=== PATIENT | female | born 1930 | race Caucasian/White ===

== ENCOUNTER 2017-08-21 06:04 | Inpatient (IN) ==
[2017-08-21] MEDS ORDERED: ONDANSETRON 4 MG/2 ML VIAL IV STA (07:05)
[2017-08-21] MEDS ORDERED: NITROGLYCERIN 2% OINT 1 INCH/GM PACK TOP STA (07:05)
[2017-08-21] MEDS ORDERED: ASPIRIN 325 MG TABLET PO STA (07:05)
[2017-08-21] MEDS ORDERED: FUROSEMIDE 100 MG/10 ML VIAL IV STA (07:05)
[2017-08-21] MEDS ORDERED: methylPREDNISolone SOD SUC 125 MG/2 ML VIAL IV STA (07:05)
--- NOTE | 2017-08-21 07:05 | Emergency Department Note ---
IAdi Emily, am scribing for, and in the presence of, Js Verde MD 07: 01. Ammon Ivory Charles R, MD, personally performed the services described in this documentation, ascribed by Juhi Joshi in my presence, and it is both accurate and complete . Arrival - Arrival Chief Complaint: Shortness of Breath Stated Complaint: trouble breathing ED Nursing Triage Note: TO ER PER WHEELCHAIR WITH COMPLAINT OF SHORTNESS OF BREATH THAT BEGAN LAST PM A SUDDEN ONSET. DENIES ANY CHEST PAIN AT THIS TIME. REPORTS WAITED THIS AM TO CALL HER DAUGHTER TO COME TO ED BECAUSE SHE DIDNT WANT TO BOTHER ANYONE. Mode of Arrival: Wheelchair Limitations: No Limitations Source: Patient - History of Present Illness HPI Narrative: Pt is a 86 y/o female who came to ED with c/o SOB that started last night after going to bed. Pt reports having dyspnea when laying flat to go to sleep. Pt denies chest pain, blood thinners, hx of smoking, or any other pains. Pt sees [facility] for heart, PCP is Dr. Madsen. PMHx of IDDM. Onset (ago): hour(s) Consistency: constant Severity: mild Severity scale (1-10): 3 Allergies/Adverse Reactions: Allergies Allergy/AdvReac Type Severity Reaction Status Date / Time LIBORIO Inhibitors Allergy HIVES Verified 08/21/17 06:35 amlodipine [From Norvasc] Allergy HIVES Verified 08/21/17 06:35 carvedilol [From Coreg] Allergy HIVES Verified 08/21/17 06:35 diltiazem [From Cardizem] Allergy HIVES Verified 08/21/17 06:35 Hydralazine Allergy HIVES Verified 08/21/17 06:35 metoclopramide Allergy HIVES Verified 08/21/17 06:35 minoxidil Allergy HIVES Verified 08/21/17 06:35 nitrofurantoin Allergy HIVES Verified 08/21/17 06:35 Penicillins Allergy HIVES Verified 08/21/17 06:35 Sulfa (Sulfonamide Allergy HIVES Verified 08/21/17 06:35 Antibiotics) ciprofloxacin AdvReac Blurry Verified 08/21/17 06:35 Vision Home Medications: Home Medications Medication Instructions Recorded Confirmed Type glipiZIDE [Glipizide] 5 mg PO DAILY 02/15/16 01/23/17 History Cetirizine Tab [ZyrTEC Tab] 10 mg PO DAILY 01/15/17 01/23/17 History Domperidone (Motilium) 10 mg PO TIDPC 01/15/17 01/23/17 History Meclizine [Antivert] 25 mg PO QID PRN 01/16/17 01/23/17 History Docusate Sodium 100 mg PO QOTHER DAY PRN 01/23/17 01/23/17 History Furosemide Tab [Lasix Tab] 40 mg PO DAILY #30 tablet 01/26/17 Rx Nebivolol HCl [Bystolic] 5 mg PO DAILY #60 tablet 01/26/17 Rx Pantoprazole Tab [Protonix Tab] 40 mg PO DAILY tablet 01/26/17 Rx Review of System - Review of System 12 point system: reviewed and no additional remarkable complaints except as stated - Review of System Constitutional: Absent: chills, fever, weakness Respiratory: Present: respiratory distress Cardiovascular: Present: orthopnea. Absent: chest pain, syncope Gastrointestinal: Absent: abdominal pain, nausea, vomiting Musculoskeletal: Absent: arm pain, neck pain Skin: Absent: rash Neurological: Absent: headache Psychiatric: Absent: anxiety Medical,Surgical,& Family Hx - Medical History Cardio: History of: CAD, Hypertension, [place], Cardiovascular Problems (cabg) HEENT: History of: Eye Problem (cataract) Endocrine: History of: Diabetes Mellitus (IDDM) Respiratory: History of: Bronchitis Gastrointestinal: History of: GERD, GI Problems (gastroparesis) - Surgical History Abdominal Surgeries: Surgical HX of: Appendectomy, Cholecystectomy - Family History Family History: Reports;: Family Diabetes (mother), Family Heart Disease, Family Hypertension (mother), Family Stroke (mother) Denies;: Family Anesthesia Reaction, Family Cancer, Family Psychiatric Problems - Social History Smoking Status: Never smoker Frequency of Alcohol Use: None Type of Drug Use: None Marital Status: Single Lives With:: Alone Functional capacity: independent ambulation Exam Vital Signs: Vital Signs Temperature 97.9 F 08/21/17 06:18 Pulse Rate 63 08/21/17 09:36 Respiratory Rate 20 08/21/17 09:36 Blood Pressure 199/76 08/21/17 06:18 O2 Sat by Pulse Oximetry 100 08/21/17 09:36 - General General appearance: alert, in no apparent distress, other (strainy voice - baseline nml) - Head Head exam: Present: atraumatic, normocephalic - Eye Eye exam: Present: PERRL, EOMI - ENT ENT exam: Present: mucous membranes moist. Absent: mucous membranes dry - Neck Neck exam: Present: full ROM - Chest Chest inspection: Present: symmetric chest wall rise (barreled chest) - Respiratory Respiratory exam: Present: rales, rhonchi. Absent: accessory muscle use, respiratory distress (no acute distress) - Cardiovascular Cardiovascular exam: Present: murmur (3 out 6 systolic ejection murmur) - Extremities Exam Extremities exam: Present: full ROM, other (vericose veins BLE). Absent: pedal edema - Neurological Exam Neurological exam: Present: alert, oriented X3, CN II-XII intact. Absent: motor sensory deficit - Psychiatric Psychiatric exam: Present: normal affect, normal mood - Skin Skin exam: Present: warm, dry Course - Consultations Consultation #1: Hospitalist will admit patient Time: 10:37 Results - Labs CBC & BMP: 08/21/17 07:28 08/21/17 07:28 Lab Results: I have reviewed the patients labs Labs: Laboratory Tests 08/21/17 08/21/17 07:28 07:28 Lymph % (Auto) 18.7 L BUN 27 H Creatinine 1.30 H Glucose 124 H AST 40 H ALT 26 Troponin I 0.016 Globulin 4.2 H Albumin/Globulin Ratio 0.8 L Laboratory Tests 08/21/17 07:28 B-Natriuretic Peptide 1617 H Laboratory Tests 08/21/17 07:28 Urine Color Yellow Urine Appearance Clear Urine pH 6.0 Ur Specific [employer] 1.008 Urine Protein 100 Urine Blood Negative Urine Nitrate Negative Urine Bilirubin Negative Urine Urobilinogen < 2.0 H Urine Leukocytes Trace Urine RBC 1 Urine WBC 2 Ur Squamous Epith Cells Occasional - Diagnostic Findings Procedure: Chest x-ray: report reviewed by me (COPD with chronic scarring in patient with prior median sternotomy. Progressive edema/infiltration/ atelectasis at the lung bases with small pleural effusions. Osteopenia with prior cholecystectomy.) Disposition Clinical Impression: CAD (coronary artery disease), Congestive heart failure, Acute exacerbation of chronic obstructive airways disease, Pleural effusion, Dyspnea Case discussed with: patient, patient's family Disposition: Still a Patient Condition: Stable Time of Disposition: 10:37
[2017-08-21] MEDS ORDERED: ALBUTEROL 2.5 MG/3 ML NEB RESP TX SCH (07:30)
[2017-08-21 07:39] LABS: Basophils # 0.1 10*3/uL (0.0-0.2); Basophils % 0.6 % (0.0-0.8); Eosinophils % 0.5 % (0.00-10.9); Hematocrit 36.4 VOL% (35.7-47.0); Hemoglobin 12.6 GM/DL (12.0-16.0); Immature Granulocytes % 0.4 %; Immature Granulocytes Absolute 0.03 #; Lymphocytes # 1.6 10*3/uL (1.4-4.0); Lymphocytes % 18.7 % (21.3-54.2); Mean Corpuscular HGB Conc 34.6 GM/DL (32-36); Mean Corpuscular Hemoglobin 31 PG (27-34); Mean Corpuscular Volume 90.3 FL (87-102); Mean Platelet Volume 10.5 FL (9.6-12.0); Monocytes # 0.7 10*3/uL (0.11-0.8); Monocytes % 8.3 % (1.7-12.7); Neutrophils % 71.5 % (38.7-73.9); Platelet Count 176 T/CUMM (130-400); Red Blood Count 4.03 MC/CUMM (3.8-5.5); Red Cell Distribution Width 12.8 % (9.3-17.3); White Blood Count 8.4 T/CUMM (4-12)
[2017-08-21] MEDS ORDERED: ONDANSETRON 4 MG/2 ML VIAL ONE (07:42)
[2017-08-21] MEDS ORDERED: NITROGLYCERIN 2% OINT 1 INCH/GM PACK TOP ONE (07:42)
[2017-08-21] MEDS ORDERED: FUROSEMIDE 100 MG/10 ML VIAL ONE (07:43)
[2017-08-21] MEDS ORDERED: methylPREDNISolone SOD SUC 125 MG/2 ML VIAL ONE (07:43)
[2017-08-21] MEDS ORDERED: ASPIRIN 325 MG TABLET ONE (07:43)
[2017-08-21 07:46] LABS: INR 1.1; PT Patient Result 11.5 SECS
[2017-08-21 08:12] LABS: Albumin 3.5 G/DL (3.4-5.0); Bilirubin,Total 0.7 MG/DL (0.2-1.0); Calcium 8.8 MG/DL (8.5-10.1); Magnesium 2.3 MG/DL (1.8-2.4); Osmolality,Calculated 280.7 MOS/KG (273-304); Potassium 4.7 MMOL/L (3.5-5.1); Total Protein 7.7 G/DL (6.4-8.3); Troponin I Only 0.016 NG/ML (0.00-0.045)
--- NOTE | 2017-08-21 09:03 | XRay Report ---
XR chest 2V Date: 08/21/2017 7:06 AM History: Shortness of breath Comparison: 01/25/2017 Technique: PA and lateral chest Findings: The heart is minimally enlarged with prior median sternotomy. The lungs remain overexpanded with progressive diffuse parenchymal findings at the lung bases with small bilateral pleural effusions. Diffuse arterial calcifications are noted. Osteopenia with degenerative changes. Prior cholecystectomy. Impression: COPD with chronic scarring in patient with prior median sternotomy. Progressive edema/infiltration/atelectasis at the lung bases with small pleural effusions. Osteopenia with prior cholecystectomy. PROCEDURE INTERPRETED AT [facility] DEPARTMENT OF RADIOLOGY Final Report Signed by: Dr. Sapna Gillette
[2017-08-21 09:35] LABS: Apearance,Urine CLEAR (Clear); Bilirubin,Urine Negative (Negative); Blood, Urine Negative (Negative); Glucose,Urine (UA) Negative (Negative); Ketones,Urine Negative (Negative); Nitrite,Urine Negative (Negative); Protein,Urine 100 MG/DL; RBC,Urine 1 /HPF (0-4); Squamous Epithelial Cell,Urine Occasional /HPF (0-10); Urine Color Yellow (Yellow); Urine Specific Gravity 1.008 (1.001-1.035); Urine Urobilinogen < 2.0 EU/DL (0.2-1.0); WBC,Urine 2 /HPF (0-6)
[2017-08-21] MEDS ORDERED: DEXTROSE 50% 25 GM/50 ML VIAL IV PRN (12:02)
[2017-08-21] MEDS ORDERED: GLUCAGON 1 MG VIAL IM PRN (12:02)
[2017-08-21] MEDS ORDERED: ACETAMINOPHEN 325 MG TABLET PO PRN (12:02)
[2017-08-21] MEDS ORDERED: ALBUTEROL/IPRATROPIUM 3 ML NEB RESP TX PRN (12:02)
--- NOTE | 2017-08-21 12:06 | Hospitalist History & Physical ---
<Hedy Foy - Last Filed: 08/21/17 13:04> Assessment and Plan (1) Congestive heart failure Status: Acute Assessment and plan: Admit to monitored bed. BNP 1617. IV lasix ordered BID. Repeat bnp in am. Current Visit: Yes (2) Dyspnea Status: Acute Assessment and plan: prn breathing treatments. Supplemental O2. Current Visit: Yes (3) Diabetes mellitus Status: Chronic Assessment and plan: accuchecks achs. SSI. Current Visit: No Qualifiers: Diabetes mellitus type: type 2 (4) Gastroparesis Status: Chronic Current Visit: No (5) Hyperlipidemia Status: Chronic Assessment and plan: Lipid panel in am. Restart home meds once they have been reconciled. Current Visit: No History of Present Illness Chief complaint: shortness of breath History of present illness: Ms. Chávez is a 86 year old white female with a history of hypertension, CAD with CABG, diabetes, cataract surgery, macular degeneration, valve issues, pneumonia, hiatal hernia, and gastroparesis that presents to the ED today for further evaluation of shortness of breath. Pt. is accompanied by her daughter. Pt. states that last night around 10 pm she became short of breath. Pt. states she was at rest when symptoms began. Pt. states she got in bed and attempted to sleep but that the symptoms continued. She says she was unable to sleep and ended up sitting in the chair all night. This morning she called her daughter and requested she be brought in to the ED for evaluation. Pt. denies any other symptoms such as chest pain, nausea, vomiting, or edema. Pt's PCP is Dr. Manuel and her cocoa mill operator is Dr. Bah. In ED, pt was noted to have a BNP of 1617 as well as a bun/creatinine of 27/1.30. CXR shows COPD with chronic scarring, progressive edema/infiltration/atelectasis at lung bases with small pleural effusion. Pt's case was discussed with the ER physician and hospitalist Dr. Lovett. Pt will be admitted to the hospitalist program for further evaluation and treatment. Home meds have been reviewed and reconciled. Pt's CODE STATUS has been discussed and she would like to be a DO NOT INTUBATE. Home Medications Medication Instructions Recorded Confirmed Type glipiZIDE [Glipizide] 5 mg PO DAILY 02/15/16 08/21/17 History Domperidone (Motilium) 10 mg PO TIDPC 01/15/17 08/21/17 History Meclizine [Antivert] 25 mg PO QID PRN 01/16/17 08/21/17 History Docusate Sodium 100 mg PO QOTHER DAY PRN 01/23/17 08/21/17 History Nebivolol HCl [Bystolic] 5 mg PO DAILY #60 tablet 01/26/17 08/21/17 Rx Insulin NPH [HumuLIN N] 12 unit SUBCUT QPM 08/21/17 08/21/17 History Pantoprazole Tab [Protonix Tab] 40 mg PO BID 08/21/17 08/21/17 History Allergies Allergy/AdvReac Type Severity Reaction Status Date / Time LIBORIO Inhibitors Allergy HIVES Verified 08/21/17 06:35 amlodipine [From Norvasc] Allergy HIVES Verified 08/21/17 06:35 carvedilol [From Coreg] Allergy HIVES Verified 08/21/17 06:35 diltiazem [From Cardizem] Allergy HIVES Verified 08/21/17 06:35 Hydralazine Allergy HIVES Verified 08/21/17 06:35 metoclopramide Allergy HIVES Verified 08/21/17 06:35 minoxidil Allergy HIVES Verified 08/21/17 06:35 nitrofurantoin Allergy HIVES Verified 08/21/17 06:35 Penicillins Allergy HIVES Verified 08/21/17 06:35 Sulfa (Sulfonamide Allergy HIVES Verified 08/21/17 06:35 Antibiotics) ciprofloxacin AdvReac Blurry Verified 08/21/17 06:35 Vision Medical,Surgical,& Family Hx - Medical History Cardio: History of: CAD, Hypertension, [place], Cardiovascular Problems (cabg) HEENT: History of: Eye Problem (cataract) Endocrine: History of: Diabetes Mellitus (IDDM) Respiratory: History of: Bronchitis Gastrointestinal: History of: GERD, GI Problems (gastroparesis) - Surgical History Abdominal Surgeries: Surgical HX of: Appendectomy, Cholecystectomy - Family History Family History: Reports;: Family Diabetes (mother), Family Heart Disease, Family Hypertension (mother), Family Stroke (mother) Denies;: Family Anesthesia Reaction, Family Cancer, Family Psychiatric Problems - Social History Smoking Status: Never smoker Frequency of Alcohol Use: None Type of Drug Use: None Lives With:: Alone Functional capacity: independent ambulation 12 point system: reviewed and no additional remarkable complaints except as stated - Cardiovascular Cardiovascular: Absent: chest pain at rest, diaphoresis, edema - Respiratory Respiratory: Present: dyspnea. Absent: cough, wheezing Exam - Constitutional Vitals: Period Temp Pulse Resp BP Sys/Ford Pulse Ox Last 24 Hr 97.9 F-98.4 F 63-79 15-23 173-199/71-76 98-100 General appearance: normal weight, no acute distress - Head Head exam: Present: normal inspection, normocephalic - Eye Eye exam: Present: EOMI. Absent: scleral icterus Pupils: Present: MARGOT. Absent: fixed - Respiratory Respiratory exam: Present: clear to auscultation bilaterally. Absent: wheezes - Cardiovascular Cardiovascular exam: Present: regular rate and rhythm - GI/Abdominal GI/Abdominal exam: Present: normal bowel sounds, soft. Absent: tenderness - Extremities Exam Extremities exam: Present: normal capillary refill, full ROM. Absent: edema - Neurological Exam Neurological exam: Present: alert, oriented X3 - Psychiatric Psychiatric exam: Present: normal affect, normal mood - Skin Skin exam: Present: normal color, warm, dry Results - Labs CBC & BMP: 08/21/17 07:28 08/21/17 07:28 Lab Results: I have reviewed the past 24 hour labs <Oscar Lovett - Last Filed: 08/21/17 15:05> History of Present Illness History of present illness: Ms. Chávez is a 86 year old female who is being admitted to the hospital with acute on chronic congestive heart failure. I have interviewed and examined the patient and reviewed all available laboratory and radiographic test results. I agree with the assessment and plans of the nurse practitioner. Ms. Chávez is being admitted to the hospital. She will be administered intravenous furosemide. Cardiology has been consulted. Exam - Constitutional Vitals: Period Temp Pulse Resp BP Sys/Ford Pulse Ox Last 24 Hr 97.9 F-98.4 F 63-85 15-23 173-199/71-86 91-100 Results - Labs CBC & BMP: 08/21/17 07:28 08/21/17 07:28
[2017-08-21] MEDS ORDERED: INFLUENZA VIRUS VACCINE 0.5 ML SYRINGE IM ONE (12:49)
[2017-08-21] MEDS ORDERED: DOCUSATE SODIUM 100 MG CAPSULE PO PRN (13:23)
--- NOTE | 2017-08-21 14:01 | Order Completion Report ---
See report scanned to EMR
[2017-08-21] MEDS: INSULIN LISPRO 100 UNIT/ML SUBCUT SCH ×2 (18:00→20:49)
[2017-08-21] MEDS: FUROSEMIDE 40 MG/4 ML VIAL IV SCH (18:00)
[2017-08-22 06:27] LABS: Basophils % 0.1 % (0.0-0.8); Hematocrit 32.8 VOL% (35.7-47.0); Hemoglobin 11.3 GM/DL (12.0-16.0); Immature Granulocytes % 0.5 %; Immature Granulocytes Absolute 0.06 #; Lymphocytes # 1.3 10*3/uL (1.4-4.0); Lymphocytes % 10.6 % (21.3-54.2); Mean Corpuscular HGB Conc 34.5 GM/DL (32-36); Mean Corpuscular Hemoglobin 31 PG (27-34); Mean Corpuscular Volume 89.9 FL (87-102); Mean Platelet Volume 11.2 FL (9.6-12.0); Neutrophils # 9.7 10*3/uL (1.4-7.4); Neutrophils % 80.8 % (38.7-73.9); Platelet Count 177 T/CUMM (130-400); Red Blood Count 3.65 MC/CUMM (3.8-5.5); Red Cell Distribution Width 12.9 % (9.3-17.3)
[2017-08-22 07:04] LABS: Calcium 9.2 MG/DL (8.5-10.1); Magnesium 2.2 MG/DL (1.8-2.4); Osmolality,Calculated 287.7 MOS/KG (273-304); Potassium 4.7 MMOL/L (3.5-5.1); Thyroid Stimulating Hormone 1.39 uIU/ml (0.358-3.74)
--- NOTE | 2017-08-22 07:52 | Hospitalist Progress Note ---
Assessment and Plan (1) Chronic kidney disease, stage 4 (severe) Status: Acute Assessment and plan: Laboratory testing demonstrates BUN 39, creatinine 1.8, and calculated GFR 21. Yesterday they were 27, 1.3, and 32, respectively. Worsening renal function is presumably secondary to volume depletion secondary to diuresis. Current Visit: Yes (2) Anemia Status: Acute Assessment and plan: Admission hematocrit and hemoglobin were 36.4 and 12.6 respectively. They are today 32.8 and 11.3 respectively. Current Visit: Yes Qualifiers: Anemia type: unspecified type Qualified Code(s): D64.9 - Anemia, unspecified (3) CAD (coronary artery disease) Status: Chronic Assessment and plan: Patient is a previous history of coronary artery disease status post remote coronary artery bypass graft surgery. She is stable at the present time with no chest pain. Troponin performed on admission was normal at 0.016. Current Visit: Yes (4) Diabetes mellitus Status: Acute Assessment and plan: Blood glucose today is 201. She is being treated with continuation of her glipizide and sliding scale regular insulin coverage. Current Visit: No Qualifiers: Diabetes mellitus type: type 2 Diabetes mellitus complication status: without complication Diabetes mellitus jail insulin use: without jail use Qualified Code(s): E11.9 - Type 2 diabetes mellitus without complications (5) Congestive heart failure Status: Acute Assessment and plan: She has a previous Nathaniel known history of congestive heart failure, unspecified type. She has been treated with intravenous furosemide since her hospitalization and has undergone diuresis. She is significantly better today. She will undergo an echocardiogram today. Cardiology has been consulted. Current Visit: Yes Qualifiers: Congestive heart failure type: unspecified congestive heart failure type Hospitalist: Subjective Interval history: Patient feels much better this morning she is undergone significant diuresis with a negative balance of 500 mL recorded since admission. She continues to receive furosemide 40 mg IV twice daily. Cardiology has been consulted. Exam - Constitutional Vitals: Period Temp Pulse Resp BP Sys/Ford Pulse Ox Last 24 Hr 97.2 F-98.4 F 60-85 15-20 137-197/64-86 91-100 General appearance: no acute distress - Head Head exam: Present: normal inspection - Neck Neck exam: Present: normal inspection - Respiratory Respiratory exam: Present: clear to auscultation bilaterally - Cardiovascular Cardiovascular exam: Present: regular rate and rhythm - GI/Abdominal GI/Abdominal exam: Present: normal bowel sounds, soft, other (Nontender with no palpable masses or hepatosplenomegaly.) - Extremities Exam Extremities exam: Present: normal inspection - Neurological Exam Neurological exam: Present: alert, oriented X3 - Skin Skin exam: Present: normal color, warm, intact Results - Labs CBC & BMP: 08/22/17 05:18 08/22/17 05:18
[2017-08-22] MEDS: FUROSEMIDE 40 MG/4 ML VIAL IV SCH (08:36)
[2017-08-22] MEDS: INSULIN LISPRO 100 UNIT/ML SUBCUT SCH ×4 (08:36→20:09)
[2017-08-22] MEDS: glipiZIDE 5 MG TABLET PO SCH (08:37)
[2017-08-22] MEDS: NEBIVOLOL 5 MG TABLET PO SCH (08:37)
[2017-08-22] MEDS: PANTOPRAZOLE 40 MG TABLET PO SCH (08:37)
[2017-08-22] MEDS ORDERED: diphenhydrAMINE CAP 25 MG CAPSULE PO PRN (10:26)
--- NOTE | 2017-08-22 11:18 | Physician Query Form ---
CLICK EDIT DOCUMENT TO SELECT QUERY ANSWER --> OK --> SIGN Prachi Shah RN Clinical Clinical Engineering Director W) [phone] (f) [phone] [email or web address] PROVIDERS: Make your selection(s) from the choices in EACH section by typing an "x" and enter comments in the comment section. Please use your independent medical judgment in providing your response. This request does not imply that any particular answer is desired or expected. CLINICAL INDICATORS: (Providers should not edit this section) Pt. admitted with CHF and diuresed with IV Lasix. Creatinine on admission was 1.30 and increased to 1.80 with a GFR of 21. Clarify which of the following most accurately represents the patient's renal status: ( ) Acute kidney injury (non-traumatic) ( ) Acute renal failure (x ) Acute renal failure with underlying Chronic Kidney Disease (CKD) - please provide stage below ( ) CKD - please provide stage below ( ) Other, please specify: ( ) Clinically unable to determine Chronic Kidney Disease Stages Source: National Kidney Disease Foundation ( ) Stage I (eGFR > or = 90) ( ) Stage II (eGFR 60 - 89) ( x) Stage III (eGFR 30 - 59) ( ) Stage IV (eGFR 15 - 29) ( ) Stage V (eGFR < 15 or dialysis) COMMENTS: PLEASE ALSO DOCUMENT RESPONSE IN PROGRESS NOTES AND/OR DISCHARGE SUMMARY Use of terms such as suspected, likely, or probable (associated with a specific diagnosis that is being evaluated, monitored, or treated as if it exists) are acceptable and can be restated in the discharge summary if not ruled out. MTDD
--- NOTE | 2017-08-22 17:53 | Order Completion Report ---
See report scanned to EMR
--- NOTE | 2017-08-22 21:31 | Cardiology Consult Note ---
I, Blaire Gonzales RN, am scribing for, and in the presence of, Frederick Hernandez MD 21:23. Assessment and Plan - Time spent with patient Time spent with patient: Greater than 30 minutes (Due to assessment, planning, documentation, medication review) (1) Congestive heart failure Status: Acute Assessment and plan: And probably is multifactorial, related to renal insufficiency, diastolic dysfunction, her age, and inactivity Likely will need some diuretic Echo/Doppler on 09/2016-35%, 3+ MR In the course of the evaluation, is seeing the patient did an echo/Doppler. He was ordered. I will review it. Follow-up with Dr. Bah as is scheduled or sooner if needed 2/6 holosystolic murmur at the apex We'll try to get her to be more active, also He likely will need some regular Lasix Current Visit: Yes Qualifiers: Congestive heart failure type: unspecified congestive heart failure type (2) Acute exacerbation of chronic obstructive airways disease Status: Acute Current Visit: Yes (3) Anemia Status: Acute Current Visit: Yes Qualifiers: Anemia type: unspecified type Qualified Code(s): D64.9 - Anemia, unspecified (4) Chronic kidney disease, stage 4 (severe) Status: Acute Current Visit: Yes (5) Pleural effusion Status: Acute Current Visit: Yes (6) CAD (coronary artery disease) Status: Chronic Current Visit: Yes (7) Acute blood loss anemia Status: Acute Current Visit: No (8) Coronary artery disease Status: Chronic Current Visit: No (9) Diabetes mellitus Status: Chronic Current Visit: No Qualifiers: Diabetes mellitus type: type 2 (10) Gastroparesis Status: Chronic Current Visit: No (11) Chest pain Status: Resolved Current Visit: No History of Present Illness - Data of Consult Patient: known to practice within the last 3 years Consult date: 08/22/17 Requesting Physician: Oscar Lovett Primary care physician: Nancy Madsen - Consult Narrative Reason for consult: CHF History of present illness: Manager Cardiac: Dr. Bah PCP: Dr. Barbour Ms. Chávez is a 86 year old female who is routinely followed by Dr. Bah with history of CAD, CHF, diabetes, dyslipidemia, hypertension, and mitral regurgitation. She underwent coronary bypass grafting the measures ago. Her last heart catheterization in 2010 demonstrated occluded LAD, right coronary artery, severe disease of intermediate ramus branch, patent saphenous vein graft RCA, patent saphenous vein graft to second diagonal artery, saphenous vein graft to marginal system known to be occluded, bilateral renal arteries with mild atherosclerosis. Stress test in February 2016 showed no reversible ischemia. Echocardiogram done December 2015 with ejection fraction 35%, moderate to severe mitral regurgitation, and mild tricuspid regurgitation. She has a history of intolerance to aspirin, liborio inhibitors, and beta blockers. Ms. Chávez reports she has not been feeling well for about 1 week. Her blood pressures been elevated and she has had a headache. Otherwise she cannot give any specific symptoms, just states she did not feel well. On Monday she developed shortness of breath while lying down that did get worse with exertion. This continued to get worse yesterday so she presented emergency department for further evaluation. She denies any noticeable edema. In the emergency department she was given Lasix 60 mg IV 1 dose and has been started on Lasix 40 mg IV twice daily. BNP on admission was 1617. Troponin was negative. She denies any chest pain or palpitations. Her blood pressure was noted to be 199/76 on admission, this has improved. This morning she is seen sitting up on side of bed. She reports her breathing is at baseline. She has diuresed well with negative I's and O's. BNP this morning is slightly improved at 1463. court monitor currently shows sinus bradycardia with heart rates in the 50s. CC: Oscar Lovett - Home Medications and Allergies Home Medications: Home Medications Medication Instructions Recorded Confirmed Type glipiZIDE [Glipizide] 5 mg PO DAILY 02/15/16 08/21/17 History Domperidone (Motilium) 10 mg PO TIDPC 01/15/17 08/21/17 History Meclizine [Antivert] 25 mg PO QID PRN 01/16/17 08/21/17 History Docusate Sodium 100 mg PO QOTHER DAY PRN 01/23/17 08/21/17 History Nebivolol HCl [Bystolic] 5 mg PO DAILY #60 tablet 01/26/17 08/21/17 Rx Insulin NPH [HumuLIN N] 12 unit SUBCUT QPM 08/21/17 08/21/17 History Pantoprazole Tab [Protonix Tab] 40 mg PO BID 08/21/17 08/21/17 History Allergies/Adverse Reactions: Allergies Allergy/AdvReac Type Severity Reaction Status Date / Time LIBORIO Inhibitors Allergy HIVES Verified 08/21/17 06:35 amlodipine [From Norvasc] Allergy HIVES Verified 08/21/17 06:35 carvedilol [From Coreg] Allergy HIVES Verified 08/21/17 06:35 diltiazem [From Cardizem] Allergy HIVES Verified 08/21/17 06:35 Hydralazine Allergy HIVES Verified 08/21/17 06:35 metoclopramide Allergy HIVES Verified 08/21/17 06:35 minoxidil Allergy HIVES Verified 08/21/17 06:35 nitrofurantoin Allergy HIVES Verified 08/21/17 06:35 Penicillins Allergy HIVES Verified 08/21/17 06:35 Sulfa (Sulfonamide Allergy HIVES Verified 08/21/17 06:35 Antibiotics) ciprofloxacin AdvReac Blurry Verified 08/21/17 06:35 Vision - Constitutional Constitutional: Present: as per HPI - EENT Eyes: Absent: blurry vision, loss of vision Ears: Present: decreased hearing. Absent: ear pain, tinnitus Nose, mouth and throat: Present: headache(s). Absent: epistaxis, neck pain - Cardiovascular Cardiovascular: Present: dyspnea, dyspnea on exertion, orthopnea. Absent: chest pain at rest, chest pain with activity, diaphoresis, edema, radiating jaw , neck or arm pain, lightheadedness, palpitations - Respiratory Respiratory: Present: dyspnea, dyspnea on exertion. Absent: cough, hemoptysis, wheezing - Gastrointestinal Gastrointestinal: Absent: abdominal pain, constipation, diarrhea, hematemesis, hematochezia, melena, nausea, vomiting - Genitourinary Genitourinary: Absent: dysuria, hematuria - Musculoskeletal Musculoskeletal: Present: limited range of motion, muscle weakness - Neurological Neurological: Present: headache(s). Absent: confusion, dizziness, frequent falls, syncope - Psychiatric Psychiatric: Absent: anxiety, depression Medical,Surgical,& Family Hx - Medical History Cardio: History of: CAD, Hypertension, [place] HEENT: History of: Eye Problem (cataract) Endocrine: History of: Diabetes Mellitus (IDDM) Respiratory: History of: Bronchitis Gastrointestinal: History of: GERD, GI Problems (gastroparesis) - Surgical History Cardiac Surgeries: Sugical HX of: Cardiac Catheterization, Cardiac Surgery HEENT Surgeries: Surgical HX of: Eye Surgery (Bilateral cataracts) Abdominal Surgeries: Surgical HX of: Appendectomy, Cholecystectomy - Family History Family History: Reports;: Family Diabetes (mother, brothers), Family Heart Disease (Father), Family Hypertension (mother), Family Stroke (mother) Denies;: Family Anesthesia Reaction, Family Cancer, Family Hematology, Family Psychiatric Problems, Additional Family History - Social History Smoking Status: Never smoker Have you smoked in the last 12 months: No Frequency of Alcohol Use: None Type of Drug Use: None Lives With:: Alone Functional capacity: independent ambulation Physical Examination Vital Signs Temp Pulse Resp BP Pulse Ox 97.9 F 69 23 199/76 98 08/21/17 06:18 08/21/17 06:18 08/21/17 06:18 08/21/17 06:18 08/21/17 06:18 General: Present: Appears Well, No Apparent Distress HEENT: Present: PERRL, Mucus Membranes Moist Neck: Present: Supple Neck, Midline Trachea, No Bruit Cardiac: Present: Regular Rhythm, Systolic Murmur, Bradycardia Lungs: Present: Normal Breath Sounds, No Wheeze, Rales, Rhonchi Neuro: Absent: Resting Tremor, Essential Tremor Abdomen: Present: Soft, Active Bowel Sounds, Non-Tender. Absent: Distended Skin: Absent: Rash, Suspicious Lesions Musculoskeletal: Present: Decreased Range of Motion, No Pain Extremities: Present: No Edema, Normal Upper Extr. Pulses, Normal Lower Extr. Pulses Result/EKG - Labs CBC & BMP: 08/22/17 05:18 08/22/17 05:18 Lab Results: I have reviewed the past 24 hour labs Labs: Laboratory Results - last 24 hr 08/21/17 08/21/17 08/21/17 11:53 20:36 22:47 WBC RBC Hgb Hct MCV MCH MCHC RDW Plt Count MPV Neut % (Auto) Lymph % (Auto) [place] % (Auto) Eos % (Auto) Baso % (Auto) Neut # (Auto) Lymph # (Auto) [place] # (Auto) Eos # (Auto) Baso # (Auto) Immature Gran % Nucleated RBC % Immature Gran # Nucleated RBCs # Immature Plt Fraction Sodium Potassium Chloride Carbon Dioxide Anion Gap BUN Creatinine GFR Calculation BUN/Creatinine Ratio Glucose POC Glucose 199 H 451 H 309 H Hemoglobin A1c Calculated Osmolality Calcium Magnesium B-Natriuretic Peptide Free T4 TSH 3rd Generation 08/22/17 08/22/17 08/22/17 05:18 05:18 05:18 WBC 12.0 D RBC 3.65 L Hgb 11.3 L Hct 32.8 L MCV 89.9 MCH 31 MCHC 34.5 RDW 12.9 Plt Count 177 MPV 11.2 Neut % (Auto) 80.8 H Lymph % (Auto) 10.6 L [place] % (Auto) 8.0 Eos % (Auto) 0.0 Baso % (Auto) 0.1 Neut # (Auto) 9.7 H Lymph # (Auto) 1.3 L [place] # (Auto) 1.0 H Eos # (Auto) 0.0 Baso # (Auto) 0.0 Immature Gran % 0.5 Nucleated RBC % 0.0 Immature Gran # 0.06 Nucleated RBCs # 0.00 Immature Plt Fraction 0.0 Sodium 138 Potassium 4.7 Chloride 101 Carbon Dioxide 28 Anion Gap 13.7 BUN 39 H D Creatinine 1.80 H GFR Calculation 21 BUN/Creatinine Ratio 21.00 H Glucose 171 H POC Glucose Hemoglobin A1c Calculated Osmolality 287.7 Calcium 9.2 Magnesium 2.2 B-Natriuretic Peptide 1463 H Free T4 TSH 3rd Generation 1.390 08/22/17 08/22/17 08/22/17 05:18 05:18 07:13 WBC RBC Hgb Hct MCV MCH MCHC RDW Plt Count MPV Neut % (Auto) Lymph % (Auto) [place] % (Auto) Eos % (Auto) Baso % (Auto) Neut # (Auto) Lymph # (Auto) [place] # (Auto) Eos # (Auto) Baso # (Auto) Immature Gran % Nucleated RBC % Immature Gran # Nucleated RBCs # Immature Plt Fraction Sodium Potassium Chloride Carbon Dioxide Anion Gap BUN Creatinine GFR Calculation BUN/Creatinine Ratio Glucose POC Glucose 201 H Hemoglobin A1c 7.2 H Calculated Osmolality Calcium Magnesium B-Natriuretic Peptide Free T4 1.37 TSH 3rd Generation - Diagnostic Findings Procedure: Chest x-ray: report reviewed by me - EKG EKG results: interpreted by me EKG shows: bradycardia, sinus rhythm Specialty Discharge - Follow Up or Referrals Follow up with: Irina Bah MD [Physician] - (4-6 weeks after discharge) David Ivory Dale, MD, personally performed the services described in this documentation, ascribed by Blaire Gonzales RN in my presence, and it is both accurate and complete .
[2017-08-23 06:45] LABS: Basophils # 0.1 10*3/uL (0.0-0.2); Basophils % 0.5 % (0.0-0.8); Eosinophils # 0.1 10*3/uL (0.0-0.87); Eosinophils % 1.2 % (0.00-10.9); Hematocrit 36.3 VOL% (35.7-47.0); Hemoglobin 12.1 GM/DL (12.0-16.0); Immature Granulocytes % 0.4 %; Immature Granulocytes Absolute 0.04 #; Lymphocytes # 2.4 10*3/uL (1.4-4.0); Mean Corpuscular HGB Conc 33.3 GM/DL (32-36); Mean Corpuscular Hemoglobin 31 PG (27-34); Mean Corpuscular Volume 92.1 FL (87-102); Mean Platelet Volume 11.1 FL (9.6-12.0); Monocytes # 0.8 10*3/uL (0.11-0.8); Monocytes % 7.9 % (1.7-12.7); Neutrophils # 6.7 10*3/uL (1.4-7.4); Platelet Count 168 T/CUMM (130-400); Red Blood Count 3.94 MC/CUMM (3.8-5.5); White Blood Count 10.1 T/CUMM (4-12)
[2017-08-23 07:17] LABS: Osmolality,Calculated 288.5 MOS/KG (273-304); Potassium 4.4 MMOL/L (3.5-5.1); Troponin I Only 0.028 NG/ML (0.00-0.045)
--- NOTE | 2017-08-23 08:29 | Hospitalist Progress Note ---
Assessment and Plan (1) Chronic kidney disease, stage 4 (severe) Status: Acute Assessment and plan: Her BUN and creatinine today are 43 and 1.5 respectively. They were 39 and 1.8 yesterday. She has stage III chronic kidney disease. Her renal function appears stable. Current Visit: Yes (2) Anemia Status: Acute Assessment and plan: Admission hematocrit and hemoglobin were 36.3 and 12.1 respectively. They were 32.8 and 11.3 respectively yesterday. Current Visit: Yes Qualifiers: Anemia type: unspecified type Qualified Code(s): D64.9 - Anemia, unspecified (3) CAD (coronary artery disease) Status: Chronic Assessment and plan: Patient is a previous history of coronary artery disease status post remote coronary artery bypass graft surgery. She is stable at the present time with no chest pain. Troponin performed on admission was normal at 0.016. Current Visit: Yes (4) Diabetes mellitus Status: Acute Assessment and plan: Blood glucose today is 116. She is being treated with continuation of her glipizide and sliding scale regular insulin coverage. Current Visit: No Qualifiers: Diabetes mellitus type: type 2 Diabetes mellitus complication status: without complication Diabetes mellitus senior living insulin use: without vermin exterminator use Qualified Code(s): E11.9 - Type 2 diabetes mellitus without complications (5) Congestive heart failure Status: Acute Assessment and plan: She has a previously known history of systoliccongestive heart failure, with LVEF 35%. She has been treated with intravenous furosemide since her hospitalization and has undergone diuresis. She is significantly better today. Repeat echocardiogram demonstrated LVEF 45-50% now. She was also found to have a small to moderate sized left pleural effusion. She is presently being followed by cardiology. Current Visit: Yes Qualifiers: Congestive heart failure type: combined Congestive heart failure chronicity : acute on chronic Qualified Code(s): I50.43 - Acute on chronic combined systolic (congestive) and diastolic (congestive) heart failure Hospitalist: Subjective Interval history: Patient states that she feels better today. She has no shortness of breath or chest pain. She continues on intravenous furosemide. She is being followed by cardiology. Exam - Constitutional Vitals: Period Temp Pulse Resp BP Sys/Ford Pulse Ox Last 24 Hr 97.4 F-97.8 F 56-68 17-20 127-151/58-69 93-99 General appearance: no acute distress - Head Head exam: Present: normal inspection - Neck Neck exam: Present: normal inspection - Respiratory Respiratory exam: Present: clear to auscultation bilaterally - Cardiovascular Cardiovascular exam: Present: regular rate and rhythm - GI/Abdominal GI/Abdominal exam: Present: normal bowel sounds, soft, other (Nontender with no palpable masses or hepatosplenomegaly.) - Extremities Exam Extremities exam: Present: normal inspection - Neurological Exam Neurological exam: Present: alert, oriented X3 - Skin Skin exam: Present: normal color, warm, intact Results - Labs CBC & BMP: 08/23/17 06:17 08/23/17 06:17 Specialty Discharge - Follow Up or Referrals Follow up with: Irina Bah MD [Physician] - (4-6 weeks after discharge)
[2017-08-23] MEDS: PANTOPRAZOLE 40 MG TABLET PO SCH (09:17)
[2017-08-23] MEDS: glipiZIDE 5 MG TABLET PO SCH (09:17)
[2017-08-23] MEDS: ENOXAPARIN 30 MG/0.3 ML SYRINGE SUBCUT SCH (09:17)
[2017-08-23] MEDS: INSULIN LISPRO 100 UNIT/ML SUBCUT SCH ×4 (09:17→21:41)
[2017-08-23] MEDS: NEBIVOLOL 5 MG TABLET PO SCH (09:17)
[2017-08-23] MEDS ORDERED: FUROSEMIDE 40 MG/4 ML VIAL IV ONE (17:02)
[2017-08-24 05:58] LABS: Basophils % 0.5 % (0.0-0.8); Eosinophils # 0.1 10*3/uL (0.0-0.87); Eosinophils % 1.2 % (0.00-10.9); Hematocrit 37.3 VOL% (35.7-47.0); Hemoglobin 12.6 GM/DL (12.0-16.0); Immature Granulocytes % 0.5 %; Immature Granulocytes Absolute 0.04 #; Lymphocytes # 1.7 10*3/uL (1.4-4.0); Lymphocytes % 21.7 % (21.3-54.2); Mean Corpuscular HGB Conc 33.8 GM/DL (32-36); Mean Corpuscular Hemoglobin 31 PG (27-34); Mean Corpuscular Volume 91.2 FL (87-102); Mean Platelet Volume 10.9 FL (9.6-12.0); Monocytes # 0.7 10*3/uL (0.11-0.8); Monocytes % 8.2 % (1.7-12.7); Neutrophils # 5.4 10*3/uL (1.4-7.4); Neutrophils % 67.9 % (38.7-73.9); Platelet Count 207 T/CUMM (130-400); Red Blood Count 4.09 MC/CUMM (3.8-5.5); Red Cell Distribution Width 12.7 % (9.3-17.3)
[2017-08-24 06:21] LABS: Calcium 9.1 MG/DL (8.5-10.1); Magnesium 2.1 MG/DL (1.8-2.4); Osmolality,Calculated 287.4 MOS/KG (273-304); Potassium 4.2 MMOL/L (3.5-5.1)
[2017-08-24] MEDS: INSULIN LISPRO 100 UNIT/ML SUBCUT SCH ×2 (07:49→11:45)
--- NOTE | 2017-08-24 08:01 | Hospitalist Progress Note ---
Assessment and Plan (1) Chronic kidney disease, stage 4 (severe) Status: Chronic Assessment and plan: Her BUN and creatinine today are 39 and 1.7 respectively. They were 43 and 1.5 yesterday. She has stage III chronic kidney disease. Her renal function appears stable. Current Visit: Yes (2) Anemia Status: Chronic Assessment and plan: Admission hematocrit and hemoglobin were 36.3 and 12.1 respectively. Her hematocrit and hemoglobin are 37.3 and 12.6 respectively today. Current Visit: No Qualifiers: Anemia type: unspecified type Qualified Code(s): D64.9 - Anemia, unspecified (3) CAD (coronary artery disease) Status: Chronic Assessment and plan: Patient is a previous history of coronary artery disease status post remote coronary artery bypass graft surgery. She is stable at the present time with no chest pain. Troponin performed on admission was normal at 0.016. Current Visit: Yes (4) Diabetes mellitus Status: Chronic Assessment and plan: Blood glucose today is 95. She is being treated with continuation of her glipizide and sliding scale regular insulin coverage. Current Visit: Yes Qualifiers: Diabetes mellitus type: type 2 Diabetes mellitus complication status: without complication Diabetes mellitus tank terminal gauger insulin use: without tank terminal gauger use Qualified Code(s): E11.9 - Type 2 diabetes mellitus without complications (5) Congestive heart failure Status: Acute Assessment and plan: Patient has a previously known history of systolic congestive heart failure with LVEF 35%. She is improved significantly since her hospitalization with intravenous furosemide diuresis. If acceptable to cardiology, I will discharge her tomorrow morning. Current Visit: Yes Qualifiers: Congestive heart failure type: combined Congestive heart failure chronicity : acute on chronic Qualified Code(s): I50.43 - Acute on chronic combined systolic (congestive) and diastolic (congestive) heart failure Hospitalist: Subjective Interval history: Patient is doing well. She feels much better since her admission to the hospital. She is not experiencing shortness of breath or chest pain. She continues diuresis with intravenous furosemide. She should be ready for discharge tomorrow morning, if acceptable to cardiology. Exam - Constitutional Vitals: Period Temp Pulse Resp BP Sys/Ford Pulse Ox Last 24 Hr 97.2 F-97.8 F 48-60 18-19 129-159/57-66 94-100 General appearance: no acute distress - Head Head exam: Present: normal inspection - Neck Neck exam: Present: normal inspection - Respiratory Respiratory exam: Present: clear to auscultation bilaterally - Cardiovascular Cardiovascular exam: Present: regular rate and rhythm - GI/Abdominal GI/Abdominal exam: Present: normal bowel sounds, soft, other (Nontender with no palpable masses or hepatosplenomegaly.) - Extremities Exam Extremities exam: Present: normal inspection - Neurological Exam Neurological exam: Present: alert, oriented X3 - Skin Skin exam: Present: normal color, warm, intact Results - Labs CBC & BMP: 08/24/17 05:15 08/24/17 05:15 Specialty Discharge - Follow Up or Referrals Follow up with: Irina Bah MD [Physician] - (4-6 weeks after discharge)
[2017-08-24] MEDS ORDERED: LOSARTAN 25 MG TABLET PO SCH (09:00)
[2017-08-24] MEDS: glipiZIDE 5 MG TABLET PO SCH (09:04)
[2017-08-24] MEDS: PANTOPRAZOLE 40 MG TABLET PO SCH (09:04)
[2017-08-24] MEDS: FUROSEMIDE 40 MG/4 ML VIAL IV SCH (09:04)
[2017-08-24] MEDS: ENOXAPARIN 30 MG/0.3 ML SYRINGE SUBCUT SCH (09:04)
[2017-08-24] MEDS: NEBIVOLOL 5 MG TABLET PO SCH (09:04)
--- NOTE | 2017-08-24 13:32 | Discharge Summary ---
Hospital Course - Hospital Course Hospital Course: Ms. Chávez is a 86 year old female who is routinely followed by Dr. Bah with history of CAD, CHF, diabetes, dyslipidemia, hypertension, and mitral regurgitation. She underwent coronary bypass grafting the measures ago. Her last heart catheterization in 2010 demonstrated occluded LAD, right coronary artery, severe disease of intermediate ramus branch, patent saphenous vein graft RCA, patent saphenous vein graft to second diagonal artery, saphenous vein graft to marginal system known to be occluded, bilateral renal arteries with mild atherosclerosis. Stress test in February 2016 showed no reversible ischemia. Echocardiogram done December 2015 with ejection fraction 35%, moderate to severe mitral regurgitation, and mild tricuspid regurgitation. She has a history of intolerance to aspirin, desiree inhibitors, and beta blockers. Ms. Chávez reports she has not been feeling well for about 1 week. Her blood pressures been elevated and she has had a headache. Otherwise she cannot give any specific symptoms, just states she did not feel well. On Monday she developed shortness of breath while lying down that did get worse with exertion. This continued to get worse yesterday so she presented emergency department for further evaluation. She denies any noticeable edema. In the emergency department she was given Lasix 60 mg IV 1 dose and has been started on Lasix 40 mg IV twice daily. BNP on admission was 1617. Troponin was negative. She denies any chest pain or palpitations. Her blood pressure was noted to be 199/76 on admission, this has improved. This morning she is seen sitting up on side of bed. She reports her breathing is at baseline. She has diuresed well with negative I's and O's. BNP this morning is slightly improved at 1463. patient monitor currently shows sinus bradycardia with heart rates in the 50s. Patient was treated with intravenous furosemide undergoing a significant diuresis. She was seen in consultation by Dr. Hernandez of cardiology for assistance in her management she underwent an echocardiogram demonstrating LVEF 45-50%, aortic valve sclerosis, and small to moderate sized left pleural effusion. Following diuresis she felt significantly improved. At the time of her discharge she was comfortable with no complaints. Diagnosis - Discharge Diagnosis (1) Chronic kidney disease, stage 4 (severe) Status: Chronic (2) Anemia Status: Chronic (3) CAD (coronary artery disease) Status: Chronic (4) Diabetes mellitus Status: Chronic (5) Congestive heart failure Status: Acute Specialty Discharge - Follow Up or Referrals Follow up with: Irina Bah MD [Physician] - (2-4 weeks after discharge) Discharge Plan - Discharge Data Disposition: Disch To Home/Self Care Condition at Discharge: Stable Discharge Diet: advance to your usual diet Activity: resume usual activities as tolerated - Discharge Medications New Furosemide Tab [Lasix Tab] 40 mg PO BID DIURETIC #60 tablet Losartan [Cozaar] 12.5 mg PO DAILY #30 tablet Continue glipiZIDE [Glipizide] 5 mg PO DAILY Nebivolol HCl [Bystolic] 5 mg PO DAILY #60 tablet Pantoprazole Tab [Protonix Tab] 40 mg PO BID Insulin NPH [HumuLIN N] 12 unit SUBCUT QPM Domperidone (Motilium) 10 mg PO TIDPC Meclizine [Antivert] 25 mg PO QID PRN PRN Reason: Anxiety Discontinued Docusate Sodium 100 mg PO QOTHER DAY PRN PRN Reason: Constipation - Follow Up or Referral Follow Up: Irina Bah MD [Physician] - (2-4 weeks after discharge) - Forms/Instructions Exam - Constitutional Vitals: Period Temp Pulse Resp BP Sys/Ford Pulse Ox Last 24 Hr 97.2 F-97.8 F 48-62 18-19 129-179/57-76 94-100 Discharge Results Procedures and tests throughout hospitalization: Pending Orders 08/21/17 07:28 Blood Culture Stat 08/25/17 04:00 Basic Metabolic Panel IN AM Comp Blood Count Auto Diff IN AM Magnesium IN AM Labs on day of discharge: Labs from last 24 hours 08/24/17 08/24/17 08/24/17 10:39 07:11 05:15 WBC RBC Hgb Hct MCV MCH MCHC RDW Plt Count MPV Neut % (Auto) Lymph % (Auto) [place] % (Auto) Eos % (Auto) Baso % (Auto) Neut # (Auto) Lymph # (Auto) [place] # (Auto) Eos # (Auto) Baso # (Auto) Immature Gran % Nucleated RBC % Immature Gran # Nucleated RBCs # Immature Plt Fraction Sodium 140 Potassium 4.2 Chloride 101 Carbon Dioxide 33 H Anion Gap 10.2 BUN 39 H Creatinine 1.70 H GFR Calculation 23 BUN/Creatinine Ratio 22.00 H Glucose 95 POC Glucose 268 H 105 Calculated Osmolality 287.4 Calcium 9.1 Magnesium 2.1 1008/23/17 08/23/17 05:15 19:18 15:42 WBC 8.0 RBC 4.09 Hgb 12.6 Hct 37.3 MCV 91.2 MCH 31 MCHC 33.8 RDW 12.7 Plt Count 207 D MPV 10.9 Neut % (Auto) 67.9 Lymph % (Auto) 21.7 [place] % (Auto) 8.2 Eos % (Auto) 1.2 Baso % (Auto) 0.5 Neut # (Auto) 5.4 Lymph # (Auto) 1.7 [place] # (Auto) 0.7 Eos # (Auto) 0.1 Baso # (Auto) 0.0 Immature Gran % 0.5 Nucleated RBC % 0.0 Immature Gran # 0.04 Nucleated RBCs # 0.00 Immature Plt Fraction 0.0 Sodium Potassium Chloride Carbon Dioxide Anion Gap BUN Creatinine GFR Calculation BUN/Creatinine Ratio Glucose POC Glucose 275 H 140 H Calculated Osmolality Calcium Magnesium Preliminary micro results at discharge 08/21/17 07:28 Blood Culture - Preliminary Blood No growth at 3 days 08/21/17 07:28 Blood Culture - Preliminary Blood No growth at 3 days DS: Provider Date of admission: 08/21/17 10:47 Primary care physician: . Mary Ann PCP Attending physician on admission: Oscar Lovett Consults: 08/22/17 07:04 Consult to Physical Therapy [CONS] Routine Reason for Physical Therapy: Evaluate and Treat Consult to Physician [CONS] Routine Comment: CHF Consulting Provider: Abdiel Vergara Consult to Specialist Group: Cardiology When should Consulting Provider be notified: Now Person Notified: Kush Date Notified: 08/22/17 Time Notified: 08:10 Discharging clinician: Oscar Lovett
--- NOTE | 2017-08-24 14:28 | Cardiology Progress Note ---
I, Blaire Gonzales RN, am scribing for, and in the presence of, Frederick Hernandez MD 14:28. Assessment and Plan (1) Congestive heart failure Status: Acute Assessment and plan: Initial assessment and plan August 22, 2017: And probably is multifactorial, related to renal insufficiency, diastolic dysfunction, her age, and inactivity Likely will need some diuretic Echo/Doppler on 09/2016-35%, 3+ MR In the course of the evaluation, is seeing the patient did an echo/Doppler. He was ordered. I will review it. Follow-up with Dr. Bah as is scheduled or sooner if needed 2/6 holosystolic murmur at the apex We'll try to get her to be more active, also He likely will need some regular Lasix Assessment and plan August 23, 2017: Less short of breath Lasix is on hold Creatinine is 1.5 Likely will need some Lasix, orally, long-term, possibly 40 mg p.o. 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 Status: Chronic Current Visit: Yes (3) Anemia Status: Chronic Current Visit: No Qualifiers: Anemia type: unspecified type Qualified Code(s): D64.9 - Anemia, unspecified (4) Chronic kidney disease, stage 4 (severe) Status: Chronic Current Visit: Yes (5) Pleural effusion Status: Chronic Current Visit: Yes (6) CAD (coronary artery disease) Status: Chronic Current Visit: Yes (7) Diabetes mellitus Status: Chronic Current Visit: Yes Qualifiers: Diabetes mellitus type: type 2 Diabetes mellitus complication status: without complication Diabetes mellitus alf insulin use: without alf use Qualified Code(s): E11.9 - Type 2 diabetes mellitus without complications (8) Gastroparesis Status: Chronic Current Visit: Yes (9) Chest pain Status: Resolved Current Visit: No Cardiology - PN: Subj Interval history: Global Marketing Specialist: Dr. Bah PCP: Dr. Barbour Summary: Ms. Chávez is a 86 year old female who is routinely followed by Dr. Bah with history of CAD, CHF, diabetes, dyslipidemia, hypertension, and mitral regurgitation. She underwent coronary bypass grafting the measures ago. Her last heart catheterization in 2010 demonstrated occluded LAD, right coronary artery, severe disease of intermediate ramus branch, patent saphenous vein graft RCA, patent saphenous vein graft to second diagonal artery, saphenous vein graft to marginal system known to be occluded, bilateral renal arteries with mild atherosclerosis. Stress test in February 2016 showed no reversible ischemia. Echocardiogram done December 2015 with ejection fraction 35%, moderate to severe mitral regurgitation, and mild tricuspid regurgitation. She has a history of intolerance to aspirin, desiree inhibitors, and beta blockers. Ms. Chávez reports she has not been feeling well for about 1 week. Her blood pressures been elevated and she has had a headache. Otherwise she cannot give any specific symptoms, just states she did not feel well. On Monday she developed shortness of breath while lying down that did get worse with exertion. This continued to get worse so she presented emergency department for further evaluation on August 21. She denies any noticeable edema. In the emergency department she was given Lasix 60 mg IV 1 dose and has been started on Lasix 40 mg IV twice daily. BNP on admission was 1617. Troponin was negative. August 23, 2017: Ms. Chávez is seen resting in bed in no acute distress. She denies any chest pain, shortness of breath, palpitations, or dizziness. Blood pressures continue to improve, this morning is 128/66. She continues to diurese well with negative I's and O's. Her creatinine was 1.8 yesterday, Lasix was placed on hold. This morning creatinine is 1.5. straw hat brusher currently shows sinus bradycardia with heart rates in the 40s. Review of systems: Cardiovascular: Denies chest pain or palpitations. Pulmonary: Denies shortness of breath. Neurological: Awake, alert, and oriented. Exam (Progress Note) - Constitutional Vitals: Period Temp Pulse Resp BP Sys/Ford Pulse Ox Last 24 Hr 97.4 F-97.8 F 56-68 17-20 127-151/58-69 93-99 Exam: General: Present: Appears Well, No Apparent Distress HEENT: Present: PERRL, Mucus Membranes Moist Neck: Present: Supple Neck, Midline Trachea, No Bruit Cardiac: Present: Regular Rhythm, Systolic Murmur, Bradycardia Lungs: Present: Normal Breath Sounds, No Wheeze, Rales, Rhonchi Neuro: Absent: Resting Tremor, Essential Tremor Abdomen: Present: Soft, Active Bowel Sounds, Non-Tender. Absent: Distended Skin: Absent: Rash, Suspicious Lesions Musculoskeletal: Present: Decreased Range of Motion, No Pain Extremities: Present: No Edema, Normal Upper Extr. Pulses, Normal Lower Extr. Pulses Result/EKG - Labs CBC & BMP: 08/24/17 05:15 08/24/17 05:15 Lab Results: I have reviewed the past 24 hour labs Labs: Laboratory Results - last 24 hr 08/22/17 08/22/17 08/22/17 11:47 15:22 19:42 WBC RBC Hgb Hct MCV MCH MCHC RDW Plt Count MPV Neut % (Auto) Lymph % (Auto) [place] % (Auto) Eos % (Auto) Baso % (Auto) Neut # (Auto) Lymph # (Auto) [place] # (Auto) Eos # (Auto) Baso # (Auto) Immature Gran % Nucleated RBC % Immature Gran # Nucleated RBCs # Immature Plt Fraction Sodium Potassium Chloride Carbon Dioxide Anion Gap BUN Creatinine GFR Calculation BUN/Creatinine Ratio Glucose POC Glucose 163 H 225 H 135 H Calculated Osmolality Calcium Troponin I 08/23/17 08/23/17 08/23/17 06:17 06:17 09:16 WBC 10.1 RBC 3.94 Hgb 12.1 Hct 36.3 MCV 92.1 MCH 31 MCHC 33.3 RDW 13.0 Plt Count 168 MPV 11.1 Neut % (Auto) 66.0 Lymph % (Auto) 24.0 [place] % (Auto) 7.9 Eos % (Auto) 1.2 Baso % (Auto) 0.5 Neut # (Auto) 6.7 Lymph # (Auto) 2.4 [place] # (Auto) 0.8 Eos # (Auto) 0.1 Baso # (Auto) 0.1 Immature Gran % 0.4 Nucleated RBC % 0.0 Immature Gran # 0.04 Nucleated RBCs # 0.00 Immature Plt Fraction 0.0 Sodium 139 Potassium 4.4 Chloride 103 Carbon Dioxide 29 Anion Gap 11.4 BUN 43 H Creatinine 1.50 H GFR Calculation 27 BUN/Creatinine Ratio 28.00 H Glucose 116 H POC Glucose 146 H Calculated Osmolality 288.5 Calcium 9.0 Troponin I 0.028 - EKG EKG results: interpreted by me EKG shows: bradycardia, sinus rhythm Specialty Discharge - Follow Up or Referrals Follow up with: Irina Bah MD [Physician] - 09/19/17 8:20 am (2-4 weeks after discharge ) I, Frederick Hernandez MD, personally performed the services described in this documentation, ascribed by Blaire Gonzales RN in my presence, and it is both accurate and complete .
--- NOTE | 2017-08-24 14:31 | Cardiology Progress Note ---
I, Blaire Gonzales RN, am scribing for, and in the presence of, Frederick Hernandez MD 14:31. Assessment and Plan (1) Congestive heart failure Status: Acute Assessment and plan: Initial assessment and plan August 22, 2017: And probably is multifactorial, related to renal insufficiency, diastolic dysfunction, her age, and inactivity Likely will need some diuretic Echo/Doppler on 09/2016-35%, 3+ MR In the course of the evaluation, is seeing the patient did an echo/Doppler. He was ordered. I will review it. Follow-up with Dr. Bah as is scheduled or sooner if needed 2/6 holosystolic murmur at the apex We'll try to get her to be more active, also He likely will need some regular Lasix Assessment and plan August 24, 2017: No shortness breath. Eating lunch well I discussed with her that it is assessed she would need some Lasix. We have changed her from IV to furosemide 40 mg p.o. twice daily. I did discuss that when Dr. Bah sees her back in clinic she may decide its best to leave it off or use something different or to continue it. For now , she needs it to keep out of heart failure. She agrees. Seems to be diastolic heart failure, partly related to renal insufficiency Okay with me for discharge and follow-up with Dr. Bah in the next 2-6 weeks. Thank you for allowing me to participate in this patient's care Current Visit: Yes Qualifiers: Congestive heart failure type: combined Congestive heart failure chronicity : acute on chronic Qualified Code(s): I50.43 - Acute on chronic combined systolic (congestive) and diastolic (congestive) heart failure (2) Acute exacerbation of chronic obstructive airways disease Status: Chronic Current Visit: Yes (3) Anemia Status: Chronic Current Visit: No Qualifiers: Anemia type: unspecified type Qualified Code(s): D64.9 - Anemia, unspecified (4) Chronic kidney disease, stage 4 (severe) Status: Chronic Current Visit: Yes (5) Pleural effusion Status: Chronic Current Visit: Yes (6) CAD (coronary artery disease) Status: Chronic Current Visit: Yes (7) Diabetes mellitus Status: Chronic Current Visit: Yes Qualifiers: Diabetes mellitus type: type 2 Diabetes mellitus complication status: without complication Diabetes mellitus correction insulin use: without long term care social worker use Qualified Code(s): E11.9 - Type 2 diabetes mellitus without complications (8) Gastroparesis Status: Chronic Current Visit: Yes (9) Chest pain Status: Resolved Current Visit: No Cardiology - PN: Subj Interval history: Boat Deckhand: Dr. Bah PCP: Dr. Barbour Summary: Ms. Chávez is a 86 year old female who is routinely followed by Dr. Bha with history of CAD, CHF, diabetes, dyslipidemia, hypertension, and mitral regurgitation. She underwent coronary bypass grafting the measures ago. Her last heart catheterization in 2010 demonstrated occluded LAD, right coronary artery, severe disease of intermediate ramus branch, patent saphenous vein graft RCA, patent saphenous vein graft to second diagonal artery, saphenous vein graft to marginal system known to be occluded, bilateral renal arteries with mild atherosclerosis. Stress test in February 2016 showed no reversible ischemia. Echocardiogram done December 2015 with ejection fraction 35%, moderate to severe mitral regurgitation, and mild tricuspid regurgitation. She has a history of intolerance to aspirin, desiree inhibitors, and beta blockers. Ms. Chávez reports she has not been feeling well for about 1 week. Her blood pressures been elevated and she has had a headache. Otherwise she cannot give any specific symptoms, just states she did not feel well. On Monday she developed shortness of breath while lying down that did get worse with exertion. This continued to get worse so she presented emergency department for further evaluation on August 21. She denies any noticeable edema. In the emergency department she was given Lasix 60 mg IV 1 dose and has been started on Lasix 40 mg IV twice daily. BNP on admission was 1617. Troponin was negative. August 23, 2017: Ms. Chávez is seen resting in bed in no acute distress. She denies any chest pain, shortness of breath, palpitations, or dizziness. Blood pressures continue to improve, this morning is 128/66. She continues to diurese well with negative I's and O's. Her creatinine was 1.8 yesterday, Lasix was placed on hold. This morning creatinine is 1.5. desk monitor currently shows sinus bradycardia with heart rates in the 40s. August 24, 2017: Ms. Chávez is seen resting in bed. She denies any chest pain , shortness of breath, palpitations, or dizziness. She states she is back to her old self. Blood pressure this morning is 132/57. Her creatinine this morning has increased to 1.70. We will change her Lasix to 40 mg p.o. twice daily. desk monitor currently shows sinus rhythm heart rates in the 50s. Review of systems: Cardiovascular: Denies chest pain or palpitations. Pulmonary: Denies shortness of breath. Neurological: Awake, alert, and oriented. Exam (Progress Note) - Constitutional Vitals: Period Temp Pulse Resp BP Sys/Ford Pulse Ox Last 24 Hr 97.2 F-97.8 F 48-62 18-19 129-159/57-66 94-100 Exam: General: Present: Appears Well, No Apparent Distress HEENT: Present: PERRL, Mucus Membranes Moist Neck: Present: Supple Neck, Midline Trachea, No Bruit Cardiac: Present: Regular Rhythm, Systolic Murmur, Bradycardia Lungs: Present: Normal Breath Sounds, No Wheeze, Rales, Rhonchi Neuro: Absent: Resting Tremor, Essential Tremor Abdomen: Present: Soft, Active Bowel Sounds, Non-Tender. Absent: Distended Skin: Absent: Rash, Suspicious Lesions Musculoskeletal: Present: Decreased Range of Motion, No Pain Extremities: Present: No Edema, Normal Upper Extr. Pulses, Normal Lower Extr. Pulses Result/EKG - Labs CBC & BMP: 08/24/17 05:15 08/24/17 05:15 Lab Results: I have reviewed the past 24 hour labs Labs: Laboratory Results - last 24 hr 08/23/17 08/23/17 08/23/17 12:37 15:42 19:18 WBC RBC Hgb Hct MCV MCH MCHC RDW Plt Count MPV Neut % (Auto) Lymph % (Auto) [place] % (Auto) Eos % (Auto) Baso % (Auto) Neut # (Auto) Lymph # (Auto) [place] # (Auto) Eos # (Auto) Baso # (Auto) Immature Gran % Nucleated RBC % Immature Gran # Nucleated RBCs # Immature Plt Fraction Sodium Potassium Chloride Carbon Dioxide Anion Gap BUN Creatinine GFR Calculation BUN/Creatinine Ratio Glucose POC Glucose 200 H 140 H 275 H Calculated Osmolality Calcium Magnesium 08/24/17 08/24/17 08/24/17 05:15 05:15 07:11 WBC 8.0 RBC 4.09 Hgb 12.6 Hct 37.3 MCV 91.2 MCH 31 MCHC 33.8 RDW 12.7 Plt Count 207 D MPV 10.9 Neut % (Auto) 67.9 Lymph % (Auto) 21.7 [place] % (Auto) 8.2 Eos % (Auto) 1.2 Baso % (Auto) 0.5 Neut # (Auto) 5.4 Lymph # (Auto) 1.7 [place] # (Auto) 0.7 Eos # (Auto) 0.1 Baso # (Auto) 0.0 Immature Gran % 0.5 Nucleated RBC % 0.0 Immature Gran # 0.04 Nucleated RBCs # 0.00 Immature Plt Fraction 0.0 Sodium 140 Potassium 4.2 Chloride 101 Carbon Dioxide 33 H Anion Gap 10.2 BUN 39 H Creatinine 1.70 H GFR Calculation 23 BUN/Creatinine Ratio 22.00 H Glucose 95 POC Glucose 105 Calculated Osmolality 287.4 Calcium 9.1 Magnesium 2.1 - EKG EKG results: interpreted by me EKG shows: bradycardia, sinus rhythm Specialty Discharge - Follow Up or Referrals Follow up with: Irina Bah MD [Physician] - 09/19/17 8:20 am (2-4 weeks after discharge ) I, Frederick Hernandez MD, personally performed the services described in this documentation, ascribed by Blaire Gonzales RN in my presence, and it is both accurate and complete [id number] .
[2017-08-24 15:25] VITALS: BP 139/70
[2017-08-24] MEDS ORDERED: FUROSEMIDE 40 MG TABLET PO SCH (16:00)
== END 2017-08-24 15:29 | disposition home or self-care (01) | DRG 291 ==
LOC: N.ED 06:04 → N.EDINP 10:47 → N.5E 12:00

== ENCOUNTER 2020-10-18 09:38 | Inpatient (IN) ==
[2020-10-18 10:39] LABS: Albumin 2.7 G/DL (3.4-5.0); Bilirubin,Total 1.4 MG/DL (0.2-1.0); Calcium 8.8 MG/DL (8.5-10.1); Osmolality,Calculated 281.7 MOS/KG (273-304); Total Protein 7.4 G/DL (6.4-8.3)
[2020-10-18] MEDS ORDERED: FUROSEMIDE 100 MG/10 ML VIAL IV STA (11:14)
[2020-10-18] MEDS ORDERED: cefTRIAXone 1,000 MG in SODIUM CHLORIDE 0.9% 100 ML IV STA (11:14)
[2020-10-18 11:22] LABS: Basophils # 0.1 10*3/uL (0.0-0.2); Basophils % 0.8 % (0.0-0.8); Eosinophils # 0.1 10*3/uL (0.0-0.87); Eosinophils % 1.8 % (0.00-10.9); Hematocrit 33.4 VOL% (35.7-47.0); Hemoglobin 11.1 GM/DL (12.0-16.0); Immature Granulocytes % 0.4 %; Immature Granulocytes Absolute 0.03 #; Lymphocytes # 1.6 10*3/uL (1.4-4.0); Lymphocytes % 21.4 % (21.3-54.2); Mean Corpuscular HGB Conc 33.2 GM/DL (32-36); Mean Corpuscular Volume 93.3 FL (87-102); Mean Platelet Volume 10.7 FL (9.6-12.0); Monocytes % 10.1 % (1.7-12.7); Neutrophils % 65.5 % (38.7-73.9); Platelet Count 154 T/CUMM (130-400); Red Blood Count 3.58 MC/CUMM (3.8-5.5); Red Cell Distribution Width 12.9 % (9.3-17.3); White Blood Count 7.4 T/CUMM (4-12)
[2020-10-18] MEDS ORDERED: cefTRIAXone 1,000 MG VIAL ONE (11:23)
[2020-10-18] MEDS ORDERED: FUROSEMIDE 40 MG/4 ML VIAL ONE (11:23)
[2020-10-18 11:38] LABS: INR 1.1; PT Patient Result 11.8 SECS (9.8-11.9)
[2020-10-18] MEDS ORDERED: GLUCAGON 1 MG VIAL IM PRN (12:49)
[2020-10-18] MEDS ORDERED: DEXTROSE 50% 25 GM/50 ML VIAL IV PRN (12:49)
[2020-10-18] MEDS ORDERED: ACETAMINOPHEN 325 MG TABLET PO PRN (12:49)
[2020-10-18 14:31] LABS: Ferritin 95.2 ng/ml (8-252)
[2020-10-18] MEDS: INSULIN LISPRO 100 UNIT/ML SUBCUT SCH ×2 (16:23→21:03)
[2020-10-18] MEDS: ONDANSETRON 4 MG/2 ML VIAL IV PRN (21:42)
[2020-10-19 07:44] LABS: Basophils # 0.1 10*3/uL (0.0-0.2); Basophils % 0.6 % (0.0-0.8); Eosinophils % 0.4 % (0.00-10.9); Hematocrit 31.7 VOL% (35.7-47.0); Hemoglobin 10.8 GM/DL (12.0-16.0); Immature Granulocytes % 0.3 %; Immature Granulocytes Absolute 0.03 #; Lymphocytes # 1.2 10*3/uL (1.4-4.0); Mean Corpuscular HGB Conc 34.1 GM/DL (32-36); Mean Platelet Volume 10.4 FL (9.6-12.0); Monocytes % 10.9 % (1.7-12.7); Neutrophils % 74.8 % (38.7-73.9); Platelet Count 175 T/CUMM (130-400); Red Blood Count 3.41 MC/CUMM (3.8-5.5); Red Cell Distribution Width 13.1 % (9.3-17.3); White Blood Count 9.1 T/CUMM (4-12)
[2020-10-19 08:40] LABS: Calcium 8.5 MG/DL (8.5-10.1); Osmolality,Calculated 289.4 MOS/KG (273-304); Risk Ratio 3.14; Thyroid Stimulating Hormone 2.55 uIU/ml (0.358-3.74)
[2020-10-19] MEDS ORDERED: PANTOPRAZOLE 40 MG TABLET PO SCH (09:00)
[2020-10-19] MEDS: INSULIN LISPRO 100 UNIT/ML SUBCUT SCH ×4 (09:28→22:08)
[2020-10-19] MEDS: cefTRIAXone 1,000 MG in SYRINGE 1 EACH IV SCH (09:29)
[2020-10-19] MEDS: FUROSEMIDE 40 MG/4 ML VIAL IV SCH (09:29)
[2020-10-19] MEDS: AZITHROMYCIN INJ 500 MG in SODIUM CHLORIDE 0.9% 250 ML IV SCH (09:29)
[2020-10-19] MEDS ORDERED: ALBUTEROL/IPRATROPIUM 3 ML NEB RESP TX ONE (11:45)
[2020-10-19] MEDS: ALBUTEROL/IPRATROPIUM 3 ML NEB RESP TX SCH ×2 (11:49→19:01)
[2020-10-19] MEDS: methylPREDNISolone SOD SUC 40 MG/1 ML VIAL IV SCH ×2 (12:16→22:08)
[2020-10-19] MEDS ORDERED: DOMPERIDONE 10 MG PO SCH (13:00)
[2020-10-19] MEDS ORDERED: METOPROLOL TARTRATE 5 MG/5 ML VIAL IV ONE (16:01)
[2020-10-19] MEDS ORDERED: FUROSEMIDE 40 MG/4 ML VIAL IV ONE (18:19)
[2020-10-19] MEDS: INSULIN NPH 100 UNIT/ML SUBCUT SCH (22:07)
[2020-10-19] MEDS: APIXABAN 2.5 MG TABLET PO SCH (22:09)
[2020-10-19] MEDS: GABAPENTIN 100 MG CAPSULE PO SCH (22:09)
[2020-10-19] MEDS: PANTOPRAZOLE 40 MG TABLET PO SCH (22:09)
[2020-10-20] MEDS: ALBUTEROL/IPRATROPIUM 3 ML NEB RESP TX SCH ×4 (01:38→18:57)
[2020-10-20] MEDS: methylPREDNISolone SOD SUC 40 MG/1 ML VIAL IV SCH ×2 (03:30→11:10)
[2020-10-20 05:22] LABS: Hemoglobin 10.5 GM/DL (12.0-16.0); Immature Granulocytes % 0.7 %; Immature Granulocytes Absolute 0.04 #; Lymphocytes # 0.4 10*3/uL (1.4-4.0); Lymphocytes % 6.2 % (21.3-54.2); Mean Corpuscular HGB Conc 32.8 GM/DL (32-36); Mean Corpuscular Volume 93.6 FL (87-102); Mean Platelet Volume 10.6 FL (9.6-12.0); Monocytes % 2.4 % (1.7-12.7); Neutrophils % 90.7 % (38.7-73.9); Platelet Count 159 T/CUMM (130-400); Red Blood Count 3.42 MC/CUMM (3.8-5.5); Red Cell Distribution Width 13.1 % (9.3-17.3); White Blood Count 5.9 T/CUMM (4-12)
[2020-10-20 05:37] LABS: Calcium 8.8 MG/DL (8.5-10.1); Osmolality,Calculated 295.5 MOS/KG (273-304)
[2020-10-20 05:54] LABS: Band Neutrophils 1 % (0-10); Hypochromasia 1+; Lymphocytes 8 % (20-55); Microcytosis 1+; Ovalocytes Slight; Platelet Estimate Adequate; Segmented Neutrophils 90 % (50-85); Total Cells Counted 100
[2020-10-20] MEDS ORDERED: MECOBALAMIN 1000 MCG PO SCH (09:00)
[2020-10-20] MEDS ORDERED: LOSARTAN 25 MG TABLET PO SCH (09:00)
[2020-10-20] MEDS ORDERED: CLOPIDOGREL 75 MG TABLET PO SCH (09:00)
[2020-10-20] MEDS ORDERED: METOPROLOL SUCCINATE XL 25 MG TABLET PO SCH (09:00)
[2020-10-20] MEDS: APIXABAN 2.5 MG TABLET PO SCH ×2 (09:24→21:34)
[2020-10-20] MEDS: NEBIVOLOL 5 MG TABLET PO SCH (09:24)
[2020-10-20] MEDS: CALCIUM (CARBONATE)/VITAMIN D 600 MG-400 UNIT TABLET PO SCH (09:24)
[2020-10-20] MEDS: SIMVASTATIN 10 MG TABLET PO SCH (09:24)
[2020-10-20] MEDS: PANTOPRAZOLE 40 MG TABLET PO SCH ×2 (09:25→21:34)
[2020-10-20] MEDS: INSULIN LISPRO 100 UNIT/ML SUBCUT SCH ×4 (09:25→21:35)
[2020-10-20] MEDS: glipiZIDE 5 MG TABLET PO SCH (09:25)
[2020-10-20] MEDS: FUROSEMIDE 40 MG/4 ML VIAL IV SCH (09:26)
[2020-10-20] MEDS: cefTRIAXone 1,000 MG in SYRINGE 1 EACH IV SCH (09:26)
[2020-10-20] MEDS: AZITHROMYCIN INJ 500 MG in SODIUM CHLORIDE 0.9% 250 ML IV SCH (09:27)
[2020-10-20] MEDS: AMIODARONE INJ 450 MG in DEXTROSE 5% 241 ML IV SCH (10:24)
[2020-10-20] MEDS: GABAPENTIN 100 MG CAPSULE PO SCH (21:34)
[2020-10-20] MEDS: INSULIN NPH 100 UNIT/ML SUBCUT SCH (21:34)
[2020-10-21] MEDS: ALBUTEROL/IPRATROPIUM 3 ML NEB RESP TX SCH ×4 (00:12→19:54)
[2020-10-21] MEDS: AMIODARONE INJ 450 MG in DEXTROSE 5% 241 ML IV SCH ×3 (02:30→17:41)
[2020-10-21 05:44] LABS: Basophils % 0.1 % (0.0-0.8); Hematocrit 29.5 VOL% (35.7-47.0); Hemoglobin 9.7 GM/DL (12.0-16.0); Immature Granulocytes % 0.5 %; Immature Granulocytes Absolute 0.08 #; Lymphocytes # 1.1 10*3/uL (1.4-4.0); Lymphocytes % 7.8 % (21.3-54.2); Mean Corpuscular HGB Conc 32.9 GM/DL (32-36); Mean Corpuscular Volume 92.8 FL (87-102); Mean Platelet Volume 10.1 FL (9.6-12.0); Monocytes % 5.5 % (1.7-12.7); Neutrophils % 86.1 % (38.7-73.9); Platelet Count 197 T/CUMM (130-400); Red Blood Count 3.18 MC/CUMM (3.8-5.5); Red Cell Distribution Width 13.2 % (9.3-17.3); White Blood Count 14.6 T/CUMM (4-12)
[2020-10-21 06:41] LABS: Calcium 8.8 MG/DL (8.5-10.1); Osmolality,Calculated 298.3 MOS/KG (273-304)
[2020-10-21] MEDS ORDERED: methylPREDNISolone SOD SUC 40 MG/1 ML VIAL IV SCH (09:00)
[2020-10-21] MEDS: SIMVASTATIN 10 MG TABLET PO SCH (09:02)
[2020-10-21] MEDS: PANTOPRAZOLE 40 MG TABLET PO SCH ×2 (09:02→20:31)
[2020-10-21] MEDS: glipiZIDE 5 MG TABLET PO SCH (09:02)
[2020-10-21] MEDS: cefTRIAXone 1,000 MG in SYRINGE 1 EACH IV SCH (09:02)
[2020-10-21] MEDS: CALCIUM (CARBONATE)/VITAMIN D 600 MG-400 UNIT TABLET PO SCH (09:02)
[2020-10-21] MEDS: NEBIVOLOL 5 MG TABLET PO SCH (09:02)
[2020-10-21] MEDS: APIXABAN 2.5 MG TABLET PO SCH ×2 (09:02→20:31)
[2020-10-21] MEDS: AZITHROMYCIN INJ 500 MG in SODIUM CHLORIDE 0.9% 250 ML IV SCH (09:03)
[2020-10-21] MEDS: INSULIN LISPRO 100 UNIT/ML SUBCUT SCH ×4 (09:05→20:32)
[2020-10-21] MEDS: GABAPENTIN 100 MG CAPSULE PO SCH (20:31)
[2020-10-21] MEDS: INSULIN NPH 100 UNIT/ML SUBCUT SCH (20:31)
[2020-10-22] MEDS: ALBUTEROL/IPRATROPIUM 3 ML NEB RESP TX SCH ×4 (00:25→19:07)
[2020-10-22 05:20] LABS: Basophils % 0.1 % (0.0-0.8); Eosinophils % 0.3 % (0.00-10.9); Hematocrit 29.8 VOL% (35.7-47.0); Hemoglobin 9.8 GM/DL (12.0-16.0); Immature Granulocytes % 0.8 %; Immature Granulocytes Absolute 0.11 #; Lymphocytes % 15.3 % (21.3-54.2); Mean Corpuscular HGB Conc 32.9 GM/DL (32-36); Mean Corpuscular Volume 93.4 FL (87-102); Mean Platelet Volume 10.4 FL (9.6-12.0); Monocytes % 6.9 % (1.7-12.7); NRBC # 0.02 10*3/uL; Neutrophils % 76.6 % (38.7-73.9); Platelet Count 220 T/CUMM (130-400); Red Blood Count 3.19 MC/CUMM (3.8-5.5); Red Cell Distribution Width 13.2 % (9.3-17.3); White Blood Count 13.3 T/CUMM (4-12)
[2020-10-22 05:49] LABS: Albumin 2.3 G/DL (3.4-5.0); Bilirubin,Total 1.3 MG/DL (0.2-1.0); Calcium 8.8 MG/DL (8.5-10.1); Osmolality,Calculated 294.7 MOS/KG (273-304); Total Protein 6.5 G/DL (6.4-8.3)
[2020-10-22] MEDS: glipiZIDE 5 MG TABLET PO SCH (08:35)
[2020-10-22] MEDS: PANTOPRAZOLE 40 MG TABLET PO SCH ×2 (08:35→20:39)
[2020-10-22] MEDS: APIXABAN 2.5 MG TABLET PO SCH ×2 (08:35→20:39)
[2020-10-22] MEDS: NEBIVOLOL 5 MG TABLET PO SCH (08:35)
[2020-10-22] MEDS: SIMVASTATIN 10 MG TABLET PO SCH (08:35)
[2020-10-22] MEDS: CALCIUM (CARBONATE)/VITAMIN D 600 MG-400 UNIT TABLET PO SCH (08:35)
[2020-10-22] MEDS: AZITHROMYCIN INJ 500 MG in SODIUM CHLORIDE 0.9% 250 ML IV SCH (08:37)
[2020-10-22] MEDS: cefTRIAXone 1,000 MG in SYRINGE 1 EACH IV SCH (08:45)
[2020-10-22] MEDS: INSULIN LISPRO 100 UNIT/ML SUBCUT SCH ×4 (08:50→20:39)
[2020-10-22] MEDS: ONDANSETRON 4 MG/2 ML VIAL IV PRN (08:53)
[2020-10-22] MEDS: AMIODARONE 200 MG TABLET PO SCH ×2 (08:53→20:39)
[2020-10-22] MEDS: AMIODARONE INJ 450 MG in DEXTROSE 5% 241 ML IV SCH (09:06)
[2020-10-22] MEDS: GABAPENTIN 100 MG CAPSULE PO SCH (20:39)
[2020-10-22] MEDS: INSULIN NPH 100 UNIT/ML SUBCUT SCH (20:40)
[2020-10-23] MEDS: ALBUTEROL/IPRATROPIUM 3 ML NEB RESP TX SCH ×4 (00:10→19:25)
[2020-10-23 05:47] LABS: Basophils % 0.3 % (0.0-0.8); Eosinophils # 0.2 10*3/uL (0.0-0.87); Eosinophils % 1.5 % (0.00-10.9); Hematocrit 30.7 VOL% (35.7-47.0); Hemoglobin 10.1 GM/DL (12.0-16.0); Immature Granulocytes % 2.3 %; Immature Granulocytes Absolute 0.27 #; Lymphocytes # 1.3 10*3/uL (1.4-4.0); Lymphocytes % 11.2 % (21.3-54.2); Mean Corpuscular HGB Conc 32.9 GM/DL (32-36); Mean Corpuscular Volume 93.9 FL (87-102); Mean Platelet Volume 10.3 FL (9.6-12.0); Monocytes % 8.6 % (1.7-12.7); NRBC # 0.05 10*3/uL; Neutrophils % 76.1 % (38.7-73.9); Platelet Count 264 T/CUMM (130-400); Red Blood Count 3.27 MC/CUMM (3.8-5.5); Red Cell Distribution Width 13.3 % (9.3-17.3); White Blood Count 11.7 T/CUMM (4-12)
[2020-10-23 06:03] LABS: Albumin 2.4 G/DL (3.4-5.0); Bilirubin,Total 0.6 MG/DL (0.2-1.0); Calcium 8.3 MG/DL (8.5-10.1); Total Protein 6.4 G/DL (6.4-8.3)
[2020-10-23] MEDS ORDERED: SODIUM CHLORIDE 0.9% 1,000 ML IV SCH (08:00)
[2020-10-23] MEDS ORDERED: MAGNESIUM HYDROXIDE SUSP 30 ML UDCUP PO PRN (09:02)
[2020-10-23] MEDS: INSULIN LISPRO 100 UNIT/ML SUBCUT SCH ×4 (11:17→21:17)
[2020-10-23] MEDS: AMIODARONE 200 MG TABLET PO SCH (11:18)
[2020-10-23] MEDS: CALCIUM (CARBONATE)/VITAMIN D 600 MG-400 UNIT TABLET PO SCH (11:18)
[2020-10-23] MEDS: NEBIVOLOL 5 MG TABLET PO SCH (11:18)
[2020-10-23] MEDS: glipiZIDE 5 MG TABLET PO SCH (11:19)
[2020-10-23] MEDS: SIMVASTATIN 10 MG TABLET PO SCH (11:19)
[2020-10-23] MEDS: PANTOPRAZOLE 40 MG TABLET PO SCH ×2 (11:19→21:13)
[2020-10-23] MEDS: APIXABAN 2.5 MG TABLET PO SCH (11:19)
[2020-10-23] MEDS: cefTRIAXone 1,000 MG in SYRINGE 1 EACH IV SCH (11:25)
[2020-10-23] MEDS: AZITHROMYCIN INJ 500 MG in SODIUM CHLORIDE 0.9% 250 ML IV SCH (11:30)
[2020-10-23] MEDS ORDERED: FUROSEMIDE 20 MG/2 ML VIAL IV ONE (12:36)
[2020-10-23 16:48] LABS: Bilirubin,Urine Negative (Negative); Blood, Urine Negative (Negative); Glucose,Urine (UA) Negative (Negative); Hyaline Casts,Urine 4 /LPF (0-3); Ketones,Urine Negative (Negative); Nitrite,Urine Negative (Negative); Protein,Urine Negative; RBC,Urine 1 /HPF (0-4); Renal Epithelial Cells,Urine Occasional /HPF (<1); Squamous Epithelial Cell,Urine Occasional /HPF (0-10); Urine Appearance CLEAR (Clear); Urine Color Yellow (Yellow); Urine Specific Gravity 1.015 (1.001-1.035); Urine Urobilinogen < 2.0 EU/DL (0.2-1.0); WBC,Urine 2 /HPF (0-6)
[2020-10-23] MEDS: GABAPENTIN 100 MG CAPSULE PO SCH (21:13)
[2020-10-23] MEDS: INSULIN NPH 100 UNIT/ML SUBCUT SCH (21:17)
[2020-10-24] MEDS: ALBUTEROL/IPRATROPIUM 3 ML NEB RESP TX SCH ×5 (02:22→19:30)
[2020-10-24 06:07] LABS: Basophils # 0.1 10*3/uL (0.0-0.2); Basophils % 0.5 % (0.0-0.8); Eosinophils # 0.2 10*3/uL (0.0-0.87); Eosinophils % 1.7 % (0.00-10.9); Hematocrit 30.9 VOL% (35.7-47.0); Hemoglobin 10.1 GM/DL (12.0-16.0); Immature Granulocytes % 2.9 %; Lymphocytes # 1.4 10*3/uL (1.4-4.0); Lymphocytes % 13.2 % (21.3-54.2); Mean Corpuscular HGB Conc 32.7 GM/DL (32-36); Mean Corpuscular Volume 94.5 FL (87-102); Mean Platelet Volume 10.7 FL (9.6-12.0); NRBC # 0.14 10*3/uL; Neutrophils % 73.7 % (38.7-73.9); Platelet Count 275 T/CUMM (130-400); Red Blood Count 3.27 MC/CUMM (3.8-5.5); Red Cell Distribution Width 13.5 % (9.3-17.3); White Blood Count 10.4 T/CUMM (4-12)
[2020-10-24 06:24] LABS: Albumin 2.5 G/DL (3.4-5.0); Calcium 8.8 MG/DL (8.5-10.1); Total Protein 6.6 G/DL (6.4-8.3)
[2020-10-24] MEDS: cefTRIAXone 1,000 MG in SYRINGE 1 EACH IV SCH (10:18)
[2020-10-24] MEDS: AZITHROMYCIN INJ 500 MG in SODIUM CHLORIDE 0.9% 250 ML IV SCH (10:18)
[2020-10-24] MEDS: INSULIN LISPRO 100 UNIT/ML SUBCUT SCH ×4 (10:19→21:04)
[2020-10-24] MEDS: AMIODARONE 200 MG TABLET PO SCH (10:20)
[2020-10-24] MEDS: CALCIUM (CARBONATE)/VITAMIN D 600 MG-400 UNIT TABLET PO SCH (10:20)
[2020-10-24] MEDS: PANTOPRAZOLE 40 MG TABLET PO SCH ×2 (10:20→21:05)
[2020-10-24] MEDS: NEBIVOLOL 5 MG TABLET PO SCH (10:20)
[2020-10-24] MEDS: glipiZIDE 5 MG TABLET PO SCH (10:20)
[2020-10-24] MEDS: SIMVASTATIN 10 MG TABLET PO SCH (10:20)
[2020-10-24] MEDS ORDERED: SODIUM CHLORIDE 0.9% 250 ML IV ONE (16:06)
[2020-10-24 16:17] LABS: ABG Base Excess -10.8 MMOL/L (-2.5-2.5); ABG HCO3 15.4 MMOL/L (20-26); ABG Oxygen Saturation 62.2 % (95-100); ABG PCO2 46.3 MM HG (35-48); ABG PO2 44.5 MM HG (80-95); ABG TCO2 16.4 MMOL/L (23-27)
[2020-10-24 16:18] LABS: ABG PH 7.183 (7.35-7.45)
[2020-10-24 16:37] LABS: Calcium 8.4 MG/DL (8.5-10.1); Osmolality,Calculated 299.4 MOS/KG (273-304)
[2020-10-24] MEDS: GABAPENTIN 100 MG CAPSULE PO SCH (21:04)
[2020-10-24] MEDS: INSULIN NPH 100 UNIT/ML SUBCUT SCH (21:04)
[2020-10-25] MEDS: ALBUTEROL/IPRATROPIUM 3 ML NEB RESP TX SCH ×2 (02:33→07:29)
[2020-10-25 06:30] LABS: Basophils % 0.2 % (0.0-0.8); Eosinophils # 0.1 10*3/uL (0.0-0.87); Eosinophils % 0.8 % (0.00-10.9); Hematocrit 30.9 VOL% (35.7-47.0); Hemoglobin 9.7 GM/DL (12.0-16.0); Immature Granulocytes % 3.2 %; Immature Granulocytes Absolute 0.42 #; Lymphocytes # 1.1 10*3/uL (1.4-4.0); Lymphocytes % 8.1 % (21.3-54.2); Mean Corpuscular HGB Conc 31.4 GM/DL (32-36); Mean Corpuscular Volume 97.5 FL (87-102); Mean Platelet Volume 12.9 FL (9.6-12.0); Monocytes % 6.5 % (1.7-12.7); NRBC # 0.28 10*3/uL; Neutrophils % 81.2 % (38.7-73.9); Red Blood Count 3.17 MC/CUMM (3.8-5.5); Red Cell Distribution Width 13.7 % (9.3-17.3); White Blood Count 12.9 T/CUMM (4-12)
[2020-10-25 06:48] LABS: Albumin 2.3 G/DL (3.4-5.0); Bilirubin,Total 1.3 MG/DL (0.2-1.0); Calcium 8.5 MG/DL (8.5-10.1); Osmolality,Calculated 295.7 MOS/KG (273-304); Total Protein 6.3 G/DL (6.4-8.3)
[2020-10-25 06:59] LABS: Platelet Count 140 T/CUMM (130-400)
[2020-10-25] MEDS: INSULIN LISPRO 100 UNIT/ML SUBCUT SCH ×2 (08:25→11:09)
[2020-10-25 08:45] VITALS: BP 111/55
[2020-10-25] MEDS ORDERED: FUROSEMIDE 80 MG TABLET PO SCH (09:00)
[2020-10-25] MEDS: cefTRIAXone 1,000 MG in SYRINGE 1 EACH IV SCH (09:19)
[2020-10-25] MEDS: PANTOPRAZOLE 40 MG TABLET PO SCH (09:20)
[2020-10-25] MEDS: CALCIUM (CARBONATE)/VITAMIN D 600 MG-400 UNIT TABLET PO SCH (09:20)
[2020-10-25] MEDS: AMIODARONE 200 MG TABLET PO SCH (09:20)
[2020-10-25] MEDS: NEBIVOLOL 5 MG TABLET PO SCH (09:20)
[2020-10-25] MEDS: SIMVASTATIN 10 MG TABLET PO SCH (09:21)
[2020-10-25] MEDS: AZITHROMYCIN INJ 500 MG in SODIUM CHLORIDE 0.9% 250 ML IV SCH (09:21)
[2020-10-25] MEDS: glipiZIDE 5 MG TABLET PO SCH (09:21)
[2020-10-25] MEDS ORDERED: MORPHINE 4 MG/1 ML VIAL IV PRN (10:49)
[2020-10-26 07:03] LABS: Total Protein (Chem) 6.2 G/DL (6.4-8.3)
[2020-10-26 08:13] LABS: Albumin (SPE) 3.2 G/DL (3.2-5.3); Albumin (SPE) Rel % 52.4 %; Alpha 1 (SPE) 0.3 G/DL (0.1-0.4); Alpha 1 (SPE) Rel % 4.8 %; Alpha 2 (SPE) 1.1 G/DL (0.4-1.0); Alpha 2 (SPE) Rel % 17.7 %; Beta (SPE) 0.7 G/DL (0.5-1.1); Beta (SPE) Rel % 10.7 %; Gamma (SPE) 0.9 G/DL (0.7-1.7); Gamma (SPE) Rel % 14.4 %
== END 2020-10-25 11:20 | disposition expired | DRG 291 ==
LOC: N.ED 09:38 → SUATTDRO 12:45 → N.EDINP 12:45 → N.TELEN 14:30
PROVIDERS: ADMIT Internal Medicine; ATTEND Internal Medicine